=== PATIENT | male | born 1960 | race Caucasian/White ===

== ENCOUNTER 2017-12-23 09:39 | Emergency (ER) | payer OTHER ==
[2017-12-23 10:35] VITALS: BP 108/79
--- NOTE | 2017-12-23 10:50 | UC ---
Respiratory Complaint HPI - HPI Summary HPI Summary: Pt presents with dry cough, body aches, and fatigue that began last night. He is worried because his father is very ill and is in a [facility]. Pt is worried that he has the flu and does not want to give this to his father. He has not taken anything for his symptoms. Denies sore throat, sinus symptoms, SOB , chest pain, abdominal pain, n/v/d/c. - History of Current Complaint Chief Complaint: UCGeneralIllness Stated Complaint: COUGH,HEADACHE Time Seen by Provider: 12/23/17 10:50 Hx Obtained From: Patient Onset/Duration: Sudden Onset Timing: Constant Severity Currently: None Pain Intensity: 0 Pain Scale Used: 0-10 Numeric Character: Cough: Nonproductive - Allergies/Home Medications Allergies/Adverse Reactions: Allergies Allergy/AdvReac Type Severity Reaction Status Date / Time morphine Allergy Vomiting Verified 12/23/17 10:30 Home Medications: Home Medications Aspirin/Acetaminophen/Caffeine [Excedrin Extra Strength Caplet] 2 tab PO Q6HR PRN 12/23/17 [History Confirmed 12/23/17] Rosuvastatin Calcium [Crestor] 10 mg PO DAILY 12/23/17 [History Confirmed ] PMH/Surg Hx/FS Hx/Imm Hx Previously Healthy: Yes Endocrine History: Dyslipidemia Cardiovascular History: Cardiac Disease, Hypertension GI/ History: Gastroesophageal Reflux - Surgical History Surgical History: Yes Surgery Procedure, Year, and Place: PTCA (7 BLOCKAGES AND 6 STENTS PLACED). - Family History Known Family History: Positive: Cardiac Disease - Social History Occupation: Employed Full-time Lives: With Family Alcohol Use: Occasionally Substance Use Type: None Smoking Status (MU): Never Smoked Tobacco Review of Systems Constitutional: Fatigue, Other - Body aches Skin: Negative Eyes: Negative ENT: Negative Respiratory: Cough Cardiovascular: Negative Gastrointestinal: Negative Neurological: Negative Psychological: Negative All Other Systems Reviewed And Are Negative: Yes Physical Exam Triage Information Reviewed: Yes Appearance: Well-Appearing, No Pain Distress, Well-Nourished Vital Signs: Initial Vital Signs Temp 97.6 F 12/23/17 10:32 Pulse 68 12/23/17 10:32 Resp 18 12/23/17 10:32 BP 108/79 12/23/17 10:32 Pulse Ox 97 12/23/17 10:32 Vital Signs Reviewed: Yes Eyes: Positive: Conjunctiva Clear. Negative: Conjunctiva Inflamed, Discharge ENT: Positive: Hearing grossly normal, Pharynx normal, TMs normal, Uvula midline. Negative: Pharyngeal erythema, Nasal congestion, Nasal drainage, TM bulging, TM dull, TM red, Tonsillar swelling, Tonsillar exudate, Hoarse voice, Sinus tenderness Neck: Positive: Supple, Nontender, No Lymphadenopathy Respiratory: Positive: Chest non-tender, Lungs clear, Normal breath sounds, No respiratory distress, No accessory muscle use Cardiovascular: Positive: RRR, No Murmur, Pulses Normal Neurological: Positive: Alert Psychological: Positive: Age Appropriate Behavior Skin: Negative: rashes UC Diagnostic Evaluation - Laboratory O2 Sat by Pulse Oximetry: 97 Respiratory Course/Dx - Course Course Of Treatment: Given his symptoms and needing to take care of his ill father - will start him with Tamiflu - Differential Dx/Diagnosis Provider Diagnoses: Influenza Discharge - Discharge Plan Condition: Stable Disposition: HOME Prescriptions: Oseltamivir CAP* [Tamiflu CAP*] 75 mg PO BID #10 cap Patient Education Materials: Influenza (DC) Referrals: Jose J Olivares MD [Primary Care Provider] - Additional Instructions: If you develop a fever, shortness of breath, chest pain, new or worsening symptoms - please call your PCP or go to the ED.
== END 2017-12-23 11:10 | disposition home or self-care (01) ==
LOC: UCEAST 09:39
DX: J11.1 Influenza due to unidentified influenza virus with other respiratory manifestations (principal); E78.5 Hyperlipidemia, unspecified; I11.9 Hypertensive heart disease without heart failure; K21.9 Gastro-esophageal reflux disease without esophagitis; Z95.5 Presence of coronary angioplasty implant and graft; Z88.5 Allergy status to narcotic agent
CPT/HCPCS: 99212; G0463

== ENCOUNTER 2018-01-10 12:00 | Emergency (ER) | payer OTHER ==
[2018-01-10 13:32] VITALS: BP 124/83
--- NOTE | 2018-01-10 16:52 | UC ---
FLU HPI - HPI Summary HPI Summary: 57 y/o male with h/op flu tx'd with tamiflu ~ 3 weeks ago, all symptosm resolved however paint continues to have dry, non-productive "nagging" cough that lingers, no SOB, chest pain, no fever, chills, no GI upset. Treating with cough drops, otc's without success. - History of Current Complaint Chief Complaint: UCRespiratory Stated Complaint: COUGH,SORE THROAT Time Seen by Provider: 01/10/18 13:42 Hx Obtained From: Patient Onset/Duration: Sudden Onset, Lasting Weeks Severity Currently: Moderate Severity Initially: Mild Pain Intensity: 0 Pain Scale Used: 0-10 Numeric - Allergy/Home Medications Allergies/Adverse Reactions: Allergies Allergy/AdvReac Type Severity Reaction Status Date / Time morphine Allergy Vomiting Verified 01/10/18 13:32 PMH/Surg Hx/FS Hx/Imm Hx Previously Healthy: Yes - Surgical History Surgical History: Yes Surgery Procedure, Year, and Place: PTCA (7 BLOCKAGES AND 6 STENTS PLACED). - Family History Known Family History: Positive: Cardiac Disease - Social History Alcohol Use: Occasionally Substance Use Type: None Smoking Status (MU): Never Smoked Tobacco Review of Systems Constitutional: Negative Skin: Negative Eyes: Negative ENT: Negative Respiratory: Cough Cardiovascular: Negative Gastrointestinal: Negative Genitourinary: Negative Motor: Negative Neurovascular: Negative Musculoskeletal: Negative Neurological: Negative Psychological: Negative Is Patient Immunocompromised?: No All Other Systems Reviewed And Are Negative: Yes Physical Exam Triage Information Reviewed: Yes Appearance: Well-Appearing, No Pain Distress, Well-Nourished Vital Signs: Initial Vital Signs Temp 96.7 F 01/10/18 13:28 Pulse 60 01/10/18 13:28 Resp 16 01/10/18 13:28 BP 124/83 01/10/18 13:28 Pulse Ox 95 01/10/18 13:28 Vital Signs Reviewed: Yes Eyes: Positive: Conjunctiva Clear ENT: Positive: Pharynx normal, TMs normal, Uvula midline. Negative: Dental tenderness, Sinus tenderness Neck: Positive: Supple, Nontender, No Lymphadenopathy Respiratory: Positive: Chest non-tender, Lungs clear, Normal breath sounds, No respiratory distress, No accessory muscle use. Negative: Respiratory distress, Decreased breath sounds, Crackles, Rhonchi, Stridor, Wheezing, Expiration, Inspiration Cardiovascular: Positive: RRR, No Murmur Abdomen Description: Positive: Nontender, No Organomegaly, Soft, Bruit. Negative: CVA Tenderness (R), CVA Tenderness (L) Musculoskeletal Exam: Normal Neurological Exam: Normal Psychological Exam: Normal Skin Exam: Normal Flu Course/Dx - Course Course Of Treatment: acute cough, medrol dose pack to decrease inflammation given, f/u with primary if no relief within 2-4 days - Differential Dx/Diagnosis Differential Diagnosis/HQI/PQRI: Bronchitis, Broncholiolitis Provider Diagnoses: bronchitis Discharge - Discharge Plan Condition: Good Disposition: HOME Prescriptions: methylPREDNISolone [Medrol Dosepak 4 MG*] 0 mg PO .SEE SHONDA INSTRUCTION #1 shonda Patient Education Materials: Antitussives (By mouth), Acute Cough (ED) Referrals: Jose J Olivares MD [Primary Care Provider] - Additional Instructions: - Steroids to decrease inflammation and help cough - Cough drops, over the counter cough medication as needed - Follow up with primary if no resolution within 4-5 days
== END 2018-01-10 14:05 | disposition home or self-care (01) ==
LOC: UCEAST 12:00
DX: J40 Bronchitis, not specified as acute or chronic (principal); Z88.5 Allergy status to narcotic agent
CPT/HCPCS: 99212; G0463

== ENCOUNTER 2018-05-31 12:00 | Emergency (ER) | payer OTHER ==
[2018-05-31 12:51] VITALS: BP 142/97
--- NOTE | 2018-05-31 12:56 | UC ---
Hand/Wrist HPI - History Of Current Complaint Chief Complaint: UCUpperExtremity Stated Complaint: HAND INJURY Time Seen by Provider: 05/31/18 12:55 Pain Intensity: 4 - Allergies/Home Medications Allergies/Adverse Reactions: Allergies Allergy/AdvReac Type Severity Reaction Status Date / Time morphine Allergy Vomiting Verified 05/31/18 12:51 PMH/Surg Hx/FS Hx/Imm Hx - Surgical History Surgical History: Yes Surgery Procedure, Year, and Place: PTCA (7 BLOCKAGES AND 6 STENTS PLACED). - Family History Known Family History: Positive: Cardiac Disease - Social History Alcohol Use: Occasionally Substance Use Type: None Smoking Status (MU): Never Smoked Tobacco Physical Exam Vital Signs: Initial Vital Signs Temp 98.2 F 05/31/18 12:47 Pulse 71 05/31/18 12:47 Resp 18 05/31/18 12:47 BP 142/97 05/31/18 12:47 Pulse Ox 98 05/31/18 12:47 Discharge - Discharge Plan Referrals: Jose J Olivares MD [Primary Care Provider] -
--- NOTE | 2018-05-31 13:00 | UC ---
Hand/Wrist HPI - HPI Summary HPI Summary: 57 yo gentleman c/o R hand pain, swelling, echymosis since injury approx 11: 30am today. Took 600mg po ibuprofen immediately afterwards. Mr. Pinto working on a wave runner (he was in the water at the time), and a cable snapped back, striking his Right hand. Some dysesthesias d/t swelling, but sensation still present. Able to move fingers well. + discomfort in palm of hand directly where the cable snapped but not so much elsewhere. No injury elsewhere. Mr. Pinto is Right handed. - History Of Current Complaint Chief Complaint: UCUpperExtremity Stated Complaint: HAND INJURY Hx Obtained From: Patient, Family/National Sales Trainer - spouse present Pain Intensity: 4 - Allergies/Home Medications Allergies/Adverse Reactions: Allergies Allergy/AdvReac Type Severity Reaction Status Date / Time morphine Allergy Vomiting Verified 05/31/18 12:51 PMH/Surg Hx/FS Hx/Imm Hx Previously Healthy: Yes - currently healthy, psh noted - Surgical History Surgical History: Yes Surgery Procedure, Year, and Place: PTCA (7 BLOCKAGES AND 6 STENTS PLACED). - Family History Known Family History: Positive: Cardiac Disease - Social History Alcohol Use: Occasionally Substance Use Type: None Smoking Status (MU): Never Smoked Tobacco Review of Systems Constitutional: Negative Skin: Bruising, Other - see hpi Eyes: Negative ENT: Negative Respiratory: Negative Cardiovascular: Negative Gastrointestinal: Negative Genitourinary: Negative Motor: Other - see hpi Neurovascular: Other - see hpi Musculoskeletal: Arthralgia, Other: - see hpi Neurological: Negative Psychological: Negative Is Patient Immunocompromised?: No All Other Systems Reviewed And Are Negative: Yes Physical Exam Triage Information Reviewed: Yes Appearance: Well-Nourished - sitting up, conversing easily, NAD Vital Signs: Initial Vital Signs Temp 98.2 F 05/31/18 12:47 Pulse 71 05/31/18 12:47 Resp 18 05/31/18 12:47 BP 142/97 05/31/18 12:47 Pulse Ox 98 05/31/18 12:47 Vital Signs Reviewed: Yes Eye Exam: Normal - grossly normal ENT Exam: Normal - grossly normal,mmm Neck exam: Normal - no c/o's, no injury Respiratory Exam: Normal - no tachypnea, no dyspnea, Resp rate regular Cardiovascular Exam: Normal - heart rate normal as noted on VS. No diaphoresis. See [facility] re hand exam. Abdominal Exam: Normal - no c/o's, sitting up. Musculoskeletal Exam: Other - moves x 4 ext's. gait steady. RUE - able to straighten elbow ok. R / U pulses present. Able to move wrist well. Moves all 5 digits, limited all fingers piper 2-3 d/t swelling. Thumb nontender, there is swelling as part of the rest of hand swelling. Tender distal palmar 3rd 4th metacarpal region. Tenderness is general, rather than point bony tenderness. Direct linear eccymosis noted in the form of the large cable described by pt. Eccymosis and swelling extend to fingers. + sensation LT present x 5 digits (limited 2/2 swelling). Neurological Exam: Normal - normal, re hand exam see [facility] Psychological Exam: Normal - conversing easily and appropriately Skin Exam: Normal - nondiaphoretic. see [facility] re hand exam Hand/Wrist Course/Dx - Course Course Of Treatment: Sling ordered for edema. Already took nsaid, see hpi. Xray - no fx. D/w Dr. Oliver (orthopedics senior net application developer), approx 13:45. Re- evaluated at 14:00 - swelling worse, reports coolness, numbness / tingling piper 3 /4th digits. Swelling has worsened. D/w Dr. Oliver again 14:00, will send to the ED, to be seen by ED /ortho will evaluate in ED. Volar splint with kristal applied for comfort in elevation and edema management (per Dr. Oliver). Reviewed splint instructions - remove if pain, worse symptoms. Declined EMS, spouse will drive. Diff dx includes albeit not limited to compartment syndrome. Questions as posed answered to the best of my ability. - Differential Dx/Diagnosis Provider Diagnoses: R hand swelling / edema, echymosis. Discharge - Sign-Out/Discharge Documenting (check all that apply): Patient Departure - Discharge Plan Condition: Guarded Disposition: HOME-RECOMMEND TO ED Patient Education Materials: Hematoma (ED) Referrals: Jose J Olivares MD [Primary Care Provider] - Additional Instructions: Go directly to the Emergency Department. Call 911 if problems en route. Elevate as possible. - Billing Disposition and Condition Condition: GUARDED Disposition: Home-Recommend to ED
--- NOTE | 2018-05-31 13:21 | RAD ---
INDICATION: Right hand injury COMPARISON: None TECHNIQUE: AP, lateral, and oblique views were obtained. FINDINGS: The bony structures, joint spaces, and soft tissues are normal for age. IMPRESSION: NO ACUTE BONY FINDINGS.
== END 2018-05-31 14:15 | disposition home health service (06) ==
LOC: UCEAST 12:00
DX: S60.221D Contusion of right hand, subsequent encounter (principal); W22.8XXD Striking against or struck by other objects, subsequent encounter; Y92.9 Unspecified place or not applicable; Z88.5 Allergy status to narcotic agent
CPT/HCPCS: 99212; G0463

== ENCOUNTER 2018-05-31 14:33 | Emergency (ER) | payer OTHER ==
[2018-05-31 14:37] VITALS: BP 134/100
--- NOTE | 2018-05-31 14:53 | ED ---
Upper Extremity Pain - HPI Summary HPI Summary: This is osito Jean Baptiste documenting for attending Dr. Deven Murphy MD. This patient is a 57 year old M presenting to [facility] after going to the [facility] accompanied by a woman with a chief complaint of right arm trauma that occurred this morning. Pt was not given any pain medication at the urgent care. Pt was setting up a wave runner when a handle spun out and hit his hand. The patient rates the pain 3/10 in severity. Symptoms aggravated by moving his fingers. Patient reports aching pain, edema of the fingers, and ecchymosis. - History of Current Complaint Chief Complaint: EDExtremityUpper Stated Complaint: RT HAND INJURY Time Seen by Provider: 05/31/18 14:40 Hx Obtained From: Patient Mechanism Of Injury: Direct Blow - hit by handle Onset/Duration: Started Hours Ago Timing: Constant Severity Initially: Moderate Severity Currently: Mild Pain Location: Hand - right Character: Aching Aggravating Factor(s): Movement - fingers Alleviating Factor(s): Rest - Allergies/Home Medications Allergies/Adverse Reactions: Allergies Allergy/AdvReac Type Severity Reaction Status Date / Time morphine Allergy Vomiting Verified 05/31/18 12:51 PMH/Surg Hx/FS Hx/Imm Hx Endocrine/Hematology History: Reports: Hx Diabetes - Diet Controlled Denies: Hx Thyroid Disease Cardiovascular History: Reports: Hx Hypertension Respiratory History: Denies: Hx Asthma, Hx Chronic Obstructive Pulmonary Disease (COPD) GI History: Denies: Hx Ulcer - Surgical History Surgery Procedure, Year, and Place: PTCA (7 BLOCKAGES AND 6 STENTS PLACED). Infectious Disease History: No Infectious Disease History: Denies: Hx Hepatitis, Hx Human Immunodeficiency Virus (HIV), Traveled Outside the [place] in Last 30 Days - Family History Known Family History: Positive: Cardiac Disease - Social History Alcohol Use: Occasionally Substance Use Type: Reports: None Smoking Status (MU): Never Smoked Tobacco Review of Systems Negative: Fever Positive: Edema - right hand Positive: Bruising - right hand All Other Systems Reviewed And Are Negative: Yes Physical Exam - Summary Physical Exam Summary: Constitutional: Well-developed, Well-nourished, Alert. Skin: Warm, Dry HENT: Normocephalic; Atraumatic Eyes: Conjunctiva normal Neck: Musculoskeletal ROM normal neck. Cardio: Rhythm regular, rate normal, Heart sounds normal; Intact distal pulses; The pedal pulses are 2+ and symmetric. Radial pulses are 2+ and symmetric. Pulmonary/Chest wall: Effort normal. Abd: Soft. Musculoskeletal: Intact right hand ROM. No TTP. Ecchymosis over the MCP joints of the third and fourth finger. Capillary refill less than two seconds. Neuro: Alert, Oriented x3 Psych: Mood and affect Normal Triage Information Reviewed: Yes Vital Signs On Initial Exam: Initial Vitals Temp Pulse Resp BP Pulse Ox 97.7 F 55 16 134/100 97 05/31/18 14:35 05/31/18 14:35 05/31/18 14:35 05/31/18 14:35 05/31/18 14:35 Vital Signs Reviewed: Yes Diagnostics - Vital Signs Vital Signs Temp Pulse Resp BP Pulse Ox 05/31/18 14:35 97.7 F 55 16 134/100 97 - Laboratory Lab Statement: Any lab studies that have been ordered have been reviewed, and results considered in the medical decision making process. Course/Dx - Course Course Of Treatment: This is scribe Aneesh Jean Baptiste documenting for attending Dr. Deven Murphy MD. This patient is a 57 year old M presenting to [facility] after going to the [facility] accompanied by a woman with a chief complaint of right arm trauma that occurred this morning. Pt was not given any pain medication at the urgent care. Pt was setting up a wave runner when a handle spun out and hit his hand. The patient rates the pain 3/10 in severity. Symptoms aggravated by moving his fingers. Patient reports aching pain, edema of the fingers, and ecchymosis. Pt was given an ice pack in the ED course. Pt should follow up with Dr. Jacobson. Keep hand elevated and iced. - Diagnoses Provider Diagnoses: Contusion of right hand Discharge - Sign-Out/Discharge Documenting (check all that apply): Patient Departure - discharge - Discharge Plan Condition: Stable Disposition: HOME Patient Education Materials: Contusion in Adults (ED) Referrals: Jose J Olivares MD [Primary Care Provider] - Johana Jacobson MD [Medical Doctor] - Additional Instructions: RETURN TO THE EMERGENCY DEPARTMENT FOR CHANGING OR WORSENING SYMPTOMS Keep right hand iced and elevated
--- NOTE | 2018-05-31 18:53 | HP ---
CC: PCP, Jose J Olivares MD * HISTORY AND PHYSICAL: DATE OF ADMISSION: 05/31/18 ATTENDING PHYSICIAN: Dr. Crissy Oliver. CHIEF COMPLAINT: Right hand pain. HISTORY OF PRESENT ILLNESS: Briefly, Mr. Pinto is a 57-year-old right-hand dominant male, who had pain and swelling in his hand after an injury at 11:30 this morning when he was working on his wave runner and the cable snapped back that was lifting it up on the dock, it lost control. He reports that he had 4/ 10 pain when he first got to Urgent Care, but it is now about a 2/10. He states that he had some numbness and tingling at the distal tips of the digits, but otherwise it is getting better. Since he has been elevating, he is feeling a lot better. He is able to flex and extend his digits. He has had no previous surgery or history of injury to the hand before. He is a nonsmoker. He is present with his . He was first evaluated at Urgent Care, after which they called me and spoke to me. He had worsening symptoms and he was brought to the ER for evaluation. He denies any shortness of breath or chest pain. PAST MEDICAL HISTORY: Significant for an NV at age 40 with 7 blockages, he has had 6 stents placed; hyperlipidemia; diabetes, which is in remission now; significant cardiac history. PAST SURGICAL HISTORY: Significant for the stent placements. Otherwise, he has had a back injection, which was not successful. ALLERGIES: None. FAMILY HISTORY: Significant for cardiac disease, history of stroke. Otherwise , noncontributory. SOCIAL HISTORY: He is right-hand dominant. He works as a printer. He denies tobacco, never smoked. He drinks alcohol on occasion. He lives with his . He is a community ambulator. REVIEW OF SYSTEMS: Negative for shortness of breath, chest pain. Very little numbness and tingling. Decreasing pain. Positive for right hand swelling. No other injuries. Otherwise, remainder of the systems is negative. PHYSICAL EXAMINATION GENERAL: He is in no acute distress. Well developed and well nourished. He is alert and oriented x3. He is resting comfortably in the bed. His hand is elevated. VITAL SIGNS: Temp of 97.7, pulse of 55, respiratory rate 16, O2 is 97% on room air, blood pressure of 134/100. MUSCULOSKELETAL: The skin is intact. He has a small blister about the DIP of the small finger, but no open wounds. He does have a lot of bruising as well as swelling and ecchymosis about the palmar aspect of the hand extending distally. He is able to gently flex and extend his digits. He is able to perform a thumbs-up. He can extend all of his digits. He is able to abduct his digits. He has minimal pain on passive stretch. He is sensate to light touch about the first dorsal webspace, index and long finger, ulnar aspect of the small finger. He has a mild amount of decreased sensation about the tip of the long finger and the index finger. He is able to flex and extend his wrist. He has 2+ radial pulse. NEUROLOGIC: He is otherwise in no acute distress. He is well developed and well nourished. He is oriented x3. Pleasant mood and normal affect. DIAGNOSTIC STUDIES/LAB DATA: X-rays of the hand were obtained in Urgent Care and reviewed that demonstrate no fracture dislocation that is apparent on these films. Labs: None were done. ASSESSMENT AND PLAN: He has a right hand injury with significant swelling and ecchymosis. At this point, there is a risk of compartment syndrome. We reviewed the risks of compartment and what to look for. We talked about increasing pain, pain on passive stretch requiring more than just ibuprofen. We talked about numbness and tingling. He is going to monitor his hand. He will see Dr. Jacobson tomorrow if he is having no issues overnight. He has been placed in a volar splint. He has been elevating and icing and he notes to call the office if he has worsening symptoms. If he does, then I will see him back in the ER. [id number]/[facility] #: [id number] CAMILO
== END 2018-05-31 15:25 | disposition home or self-care (01) ==
LOC: ED 14:33
DX: S60.221A Contusion of right hand, initial encounter (principal); W22.8XXA Striking against or struck by other objects, initial encounter; Y93.89 Activity, other specified; Y92.9 Unspecified place or not applicable; Z95.5 Presence of coronary angioplasty implant and graft; Z88.5 Allergy status to narcotic agent; Z82.49 Family history of ischemic heart disease and other diseases of the circulatory system
CPT/HCPCS: 99283

== ENCOUNTER 2019-10-05 08:50 | Emergency (ER) | payer OTHER ==
[2019-10-05 09:01] VITALS: BP 128/94
[2019-10-05 09:26] LABS: Influenza A Molecular POSITIVE (Negative)
--- NOTE | 2019-10-05 09:34 | UC ---
FLU HPI - HPI Summary HPI Summary: 3 DAYS OF COUGH, CONGESTION, BODY ACHES, FATIGUE, MARADIAGA, CHILLS, SUBJECTIVE FEVER. UP TO DATE FLU SHOT. - History of Current Complaint Chief Complaint: UCGeneralIllness Stated Complaint: FLU LIKE SYMPTOMS Time Seen by Provider: 10/05/19 09:28 Hx Obtained From: Patient Onset/Duration: Gradual Onset, Lasting Days, Still Present Severity Currently: Moderate Severity Initially: Moderate Pain Intensity: 4 Pain Scale Used: 0-10 Numeric Associated Signs & Symptoms: Positive: Myalgia, Cough, Nasal Congestion, Headache - Allergy/Home Medications Allergies/Adverse Reactions: Allergies Allergy/AdvReac Type Severity Reaction Status Date / Time morphine Allergy Vomiting Verified 10/05/19 09:01 PMH/Surg Hx/FS Hx/Imm Hx Endocrine History: Diabetes Cardiovascular History: Cardiac Disease, Hypertension - Surgical History Surgical History: Yes Surgery Procedure, Year, and Place: PTCA (7 BLOCKAGES AND 6 STENTS PLACED).mi - Family History Known Family History: Positive: Cardiac Disease - Social History Alcohol Use: Occasionally Substance Use Type: None Smoking Status (MU): Never Smoked Tobacco Review of Systems All Other Systems Reviewed And Are Negative: Yes Constitutional: Positive: Chills, Fatigue ENT: Positive: Sore Throat, Nasal Discharge Respiratory: Positive: Cough Cardiovascular: Positive: Negative Gastrointestinal: Positive: Negative Musculoskeletal: Positive: Myalgia Neurological: Positive: Headache Physical Exam Triage Information Reviewed: Yes Appearance: Well-Appearing, No Pain Distress, Well-Nourished Vital Signs: Initial Vital Signs Temp 99.3 F 10/05/19 08:58 Pulse 100 10/05/19 08:58 Resp 20 10/05/19 08:58 BP 128/94 10/05/19 08:58 Pulse Ox 96 10/05/19 08:58 Laboratory Tests 10/05/19 09:21 Influenza A (Rapid) Positive A Vital Signs Reviewed: Yes Eyes: Positive: Conjunctiva Clear ENT: Positive: Hearing grossly normal, Pharynx normal, TMs normal Neck: Positive: Supple, Nontender, No Lymphadenopathy Respiratory Exam: Normal Cardiovascular: Positive: Tachycardia Abdomen Description: Positive: Soft Musculoskeletal: Positive: No Edema Neurological: Positive: Alert Psychological: Positive: Age Appropriate Behavior Skin: Negative: Rashes Flu Course/Dx - Differential Dx/Diagnosis Provider Diagnosis: Influenza A Discharge ED - Sign-Out/Discharge Documenting (check all that apply): Patient Departure All imaging exams completed and their final reports reviewed: No Studies - Discharge Plan Condition: Stable Disposition: HOME Prescriptions: Oseltamivir CAP* [Tamiflu CAP*] 75 mg PO BID #10 cap Patient Education Materials: Influenza (ED) Referrals: Mario Henning MD [Primary Care Provider] - If Needed Additional Instructions: SWAB POSITIVE FOR INFLUENZA A. TAMIFLU TWICE DAILY FOR 5 DAYS. OTC MEDS NEEDED FOR FEVER, BODY ACHES. STAY WELL HYDRATED AND RESTED. SEEK FOLLOW-UP IF YOU ARE NOT IMPROVING EXPECTED. - Billing Disposition and Condition Condition: STABLE Disposition: Home
== END 2019-10-05 09:45 | disposition home or self-care (01) ==
LOC: UCEAST 08:50
DX: J11.1 Influenza due to unidentified influenza virus with other respiratory manifestations (principal); E11.9 Type 2 diabetes mellitus without complications; I10 Essential (primary) hypertension; Z88.5 Allergy status to narcotic agent; Z95.5 Presence of coronary angioplasty implant and graft
CPT/HCPCS: 99212; G0463

== ENCOUNTER 2020-03-28 15:32 | Inpatient (IN) ==
[2020-03-28] MEDS ORDERED: NS 0.9% 1000 ml BAG 1,000 ML IV ONE (15:51)
[2020-03-28] MEDS ORDERED: Nitro 2% OINT (Nitroglycerin) 1 INCH/PAK TOPICAL ONE (15:51)
[2020-03-28 15:55] LABS: ABS Lymphocytes 1.6 10^3/ul (1.0-4.8); ABS Monocytes 0.8 10^3/ul (0-0.8); Eosinophil % 0.4 %; Hematocrit 42 % (42-52); Hemoglobin 14.4 g/dL (14.0-18.0); Lymphocyte % 13.8 %; Mean Corpuscular HGB Conc 34 g/dL (31-36); Mean Corpuscular Hemoglobin 32 pg (27-31); Mean Corpuscular Volume 94 fL (80-94); Mean Platelet Volume 7.5 fL (7.4-10.4); Platelet Count 243 10^3/uL (150-450); Red Blood Count 4.52 10^6 /uL (4.18-5.48); Red Cell Distribution Width 13 % (10-15); White Blood Count 11.9 10^3/uL (3.5-10.8)
[2020-03-28 16:18] LABS: CKMB ng/mL 2.9 ng/mL (0.6-6.3)
[2020-03-28 16:33] LABS: Activated Partial Thrombo Time 30.5 seconds (26.0-38.0); INR 1.1 (0.82-1.09)
[2020-03-28 16:35] LABS: Urine Appearance Clear; Urine Bilirubin Negative (Negative); Urine Blood Negative (Negative); Urine Color Yellow; Urine Glucose Negative (Negative); Urine Ketones Negative (Negative); Urine Nitrite Negative (Negative); Urine Protein Negative (Negative); Urine Specific Gravity 1.024 (1.010-1.030); Urine Urobilinogen Negative (Negative)
[2020-03-28 16:40] LABS: Albumin 4.1 g/dL (3.2-5.2); Albumin/Globulin Ratio 1.4 (1-3); BUN/Creatinine Ratio 14.7 (8-20); Calcium 9.7 mg/dL (8.6-10.3); EGFR African American 97.9 (>60); EGFR Non-African American 80.9 (>60); Globulin 2.9 g/dL (2-4); Magnesium 1.7 mg/dL (1.9-2.7); Potassium 4.1 mmol/L (3.5-5.0); Total Bilirubin 0.5 mg/dL (0.2-1.0)
[2020-03-28] MEDS ORDERED: Heparin - STEMI 5,000 UNITS/ML 1 ml VIAL IV ONE (17:11)
[2020-03-28] MEDS ORDERED: HEPARIN DRIP IV SCH (18:00)
[2020-03-28] MEDS ORDERED: Heparin 5000 UNITS/ML VIAL(*) 1 ml vial IV SCH (18:00)
[2020-03-28] MEDS ORDERED: [UNRECOGNIZED DRUG - OTHER] IV SCH (18:00)
[2020-03-28] MEDS: Heparin DRIP 25,000 UNITS(*) 25,000 UNITS/500 ML BAG IV SCH (18:08)
[2020-03-28] MEDS ORDERED: Ondansetron 4 mg VIAL 2 MG/ML 2 ml VIAL IV PRN (19:02)
[2020-03-28] MEDS ORDERED: Senna TAB 8.6 mg TAB PO PRN (19:02)
[2020-03-28] MEDS ORDERED: Magnesium Sulfate 2 gm BAG 2 GM/50 ML BAG IVPB ONE (19:11)
[2020-03-28 19:40] LABS: Troponin I 0.19 ng/mL (<0.03)
[2020-03-28 22:46] LABS: Troponin I 1.57 ng/mL (<0.03)
[2020-03-29] MEDS ORDERED: NS 0.9% 250 ml 250 ML IV ONE ×2 (03:11→23:34)
[2020-03-29] MEDS ORDERED: NS 0.9% 1000 ml BAG 1,000 ML IV SCH ×3 (03:15→08:30)
[2020-03-29] MEDS ORDERED: Nitro 2% OINT (Nitroglycerin) 1 INCH/PAK TOPICAL ONE (03:56)
[2020-03-29 05:39] LABS: ABS Eosinophils 0.1 10^3/ul (0-0.6); ABS Lymphocytes 1.8 10^3/ul (1.0-4.8); ABS Monocytes 0.8 10^3/ul (0-0.8); Eosinophil % 0.9 %; Hematocrit 40 % (42-52); Hemoglobin 13.7 g/dL (14.0-18.0); Lymphocyte % 26.8 %; Mean Corpuscular HGB Conc 34 g/dL (31-36); Mean Corpuscular Hemoglobin 32 pg (27-31); Mean Corpuscular Volume 93 fL (80-94); Mean Platelet Volume 7.8 fL (7.4-10.4); Nucleated Red Blood Cells % 0.1; Platelet Count 194 10^3/uL (150-450); Red Blood Count 4.32 10^6 /uL (4.18-5.48); Red Cell Distribution Width 13 % (10-15); White Blood Count 6.7 10^3/uL (3.5-10.8)
[2020-03-29 05:55] LABS: Anion Gap 6 mmol/L (2-11); BUN/Creatinine Ratio 16.2 (8-20); Blood Urea Nitrogen 12 mg/dL (6-24); CO2 Carbon Dioxide 26 mmol/L (22-32); Calcium 8.8 mg/dL (8.6-10.3); Chloride 105 mmol/L (101-111); Cholesterol 158 mg/dL; EGFR African American 130.5 (>60); EGFR Non-African American 107.9 (>60); Glucose 103 mg/dL (70-100); HDL Cholesterol 33.9 mg/dL; LDL Cholesterol 85 mg/dL; Sodium 137 mmol/L (135-145); Triglycerides 197 mg/dL
[2020-03-29 06:00] LABS: Troponin I 6.16 ng/mL (<0.03)
[2020-03-29] MEDS: Heparin 5000 UNITS/ML VIAL(*) 1 ml vial IV SCH (06:13)
[2020-03-29] MEDS ORDERED: Perflutren Lipid Microsphere 3 ML VIAL ONE (08:08)
[2020-03-29] MEDS: PITAVASTATIN 2 MG PO SCH (08:44)
[2020-03-29] MEDS ORDERED: Heparin 1,000 UNIT/ML CATH LAB 1,000 10 ml (10,000 UNITS) IV ONE (09:43)
[2020-03-29] MEDS ORDERED: VERAPAMIL 2.5 MG/ML 2 ML VIAL ** 5 mg/2 ml ONE (09:43)
[2020-03-29] MEDS ORDERED: Midazolam 5 mg/5 ml VIAL 1 mg/ml 5 ml VIAL (5 mg) ONE (09:43)
[2020-03-29] MEDS ORDERED: Lidocaine 1% VIAL 10 MG/ML VIAL ONE (09:44)
[2020-03-29] MEDS ORDERED: nitroGLYCERIN DRIP 0 MCG/0 ML BTL ONE (09:44)
[2020-03-29] MEDS ORDERED: fentaNYL 100 mcg/2 ml 50 MCG/ML VIAL ONE (09:44)
[2020-03-29] MEDS ORDERED: Iohexol 350 (CONTRAST) 200 ML MDV IV ONE (09:45)
[2020-03-29] MEDS ORDERED: Heparin 2 UNITS/ML 1000 mls 2,000 ML IV ONE (09:45)
[2020-03-30] MEDS: Heparin DRIP 25,000 UNITS(*) 25,000 UNITS/500 ML BAG IV SCH (01:10)
[2020-03-30 06:15] LABS: ABS Lymphocytes 1.7 10^3/ul (1.0-4.8); ABS Monocytes 0.7 10^3/ul (0-0.8); Eosinophil % 0.6 %; Hematocrit 39 % (42-52); Hemoglobin 13.4 g/dL (14.0-18.0); Lymphocyte % 25.4 %; Mean Corpuscular HGB Conc 34 g/dL (31-36); Mean Corpuscular Hemoglobin 32 pg (27-31); Mean Corpuscular Volume 94 fL (80-94); Mean Platelet Volume 8.2 fL (7.4-10.4); Platelet Count 169 10^3/uL (150-450); Red Blood Count 4.17 10^6 /uL (4.18-5.48); Red Cell Distribution Width 13 % (10-15); White Blood Count 6.6 10^3/uL (3.5-10.8)
[2020-03-30 06:36] LABS: Albumin 3.5 g/dL (3.2-5.2); Albumin/Globulin Ratio 1.3 (1-3); BUN/Creatinine Ratio 12.8 (8-20); Calcium 8.8 mg/dL (8.6-10.3); EGFR African American 122.9 (>60); EGFR Non-African American 101.5 (>60); Globulin 2.6 g/dL (2-4); HDL Cholesterol 35.5 mg/dL; Total Bilirubin 0.4 mg/dL (0.2-1.0); Total Protein 6.1 g/dL (6.4-8.9)
[2020-03-30] MEDS: PITAVASTATIN 2 MG PO SCH (09:22)
[2020-03-30 12:02] VITALS: BP 96/65
[2020-03-30] MEDS: Heparin 5000 UNITS/ML VIAL(*) 1 ml vial IV SCH (13:03)
== END 2020-03-30 14:10 | disposition short-term general hospital (02) | DRG 282 ==
LOC: ED 15:32 → MEDTELE 20:20
PROVIDERS: ADMIT Physician Assistant; ATTEND Hospitalist